=== PATIENT | female | born 1990 | race Hispanic/Latino ===

== ENCOUNTER 2018-10-30 17:28 | Emergency (ER) | payer OTHER ==
[2018-10-30] MEDS ORDERED: HYDROCORTISONE 20 MG TABLET PO SCH (18:30)
[2018-10-30 18:53] LABS: APPEARANCE,URINE Clear (CLEAR); BILIRUBIN,URINE Negative (NEGATIVE); COLOR,URINE Yellow (YELLOW); GLUCOSE, URINE (UA) Negative (NEGATIVE); KETONES,URINE Negative (NEGATIVE); LEUKOCYTE ESTERASE ,URINE Trace (NEGATIVE); NITRATE,URINE Negative (NEGATIVE); OCCULT BLOOD,URINE Moderate (NEGATIVE); PH,URINE 5.5 (5.0-8.0); PROTEIN,URINE POS 1+ (NEGATIVE)
[2018-10-30 18:55] LABS: HCG,QUAL RESULT NEGATIVE (NEGATIVE)
[2018-10-30 19:24] LABS: BACTERIA,URINE Few /HPF (None Seen); MUCUS,URINE Many LPF (None Seen); RBC,URINE None Seen /HPF (0-1)
== END 2018-10-30 19:41 | disposition home or self-care (01) ==
LOC: EDH 17:28
DX: S20.219A Contusion of unspecified front wall of thorax, initial encounter (principal); E27.1 Primary adrenocortical insufficiency; Z72.0 Tobacco use; Y04.0XXA Assault by unarmed brawl or fight, initial encounter; Y93.89 Activity, other specified; Y92.098 Other place in other non-institutional residence as the place of occurrence of the external cause; Y99.8 Other external cause status
CPT/HCPCS: 71046; 81001; 81025